=== PATIENT | female | born 1990 | race Caucasian/White ===

== ENCOUNTER 2021-05-03 18:38 | Emergency (ER) | payer OTHER ==
[2021-05-03 20:32] LABS: BASO % 0.8 % (0-2.0); EOS % 1.8 % (0-4.5); HEMATOCRIT 38.4 % (32.4-45.2); HEMOGLOBIN 13.2 GM/dL (10.7-15.3); LYMPH % 31.2 % (8-40); MCH 31.2 pg (25.7-33.7); MCHC 34.4 g/dl (32.0-36.0); MEAN CELL VOLUME 90.7 fl (80-96); MEAN PLT VOLUME 7.9 fl (7.5-11.1); NEUT % 58.2 % (42.8-82.8); PLATELET COUNT 282 10^3/uL (134-434); RBC 4.24 M/mm3 (3.60-5.2); RDW 13.2 % (11.6-15.6)
[2021-05-03 20:36] LABS: EPI CELLS 13 /uL (0-25.1); HYALINE CASTS 1 /uL (0-3.1); URINE APPEARANCE CLEAR; URINE BACTERIA 1130 /uL (0-1359); URINE BILIRUBIN NEGATIVE (NEGATIVE); URINE COLOR YELLOW; URINE GLUCOSE (UA) NEGATIVE (NEGATIVE); URINE KETONE NEGATIVE (NEGATIVE); URINE LEUK ESTERASE NEGATIVE (NEGATIVE); URINE NITRITE NEGATIVE (NEGATIVE); URINE PROTEIN NEGATIVE (NEGATIVE); URINE UROBILINOGEN 0.2 mg/dL (0.2-1.0); URINE WBC 12 /uL (0-25.8)
[2021-05-03 20:51] LABS: URINE RBC 28.7 /uL (0-23.9)
[2021-05-03 21:10] LABS: CALCIUM 9.7 mg/dL (8.5-10.1)
[2021-05-03 21:11] LABS: ALBUMIN 3.8 g/dl (3.4-5.0); BLOOD UREA NITROGEN 12.7 mg/dL (7-18)
[2021-05-03 21:14] LABS: CREATININE 0.8 mg/dL (0.55-1.3)
[2021-05-03 21:16] LABS: BILIRUBIN,TOTAL 0.2 mg/dL (0.2-1); TOT PROT 7.8 g/dl (6.4-8.2)
[2021-05-03] MEDS ORDERED: CEPHALEXIN 250 MG/5 ML ORAL SUSPENSION PO ONE (22:06)
[2021-05-03 23:50] VITALS: BP 119/70; PULSE 64; TEMP 98.5
== END 2021-05-03 23:50 | disposition home or self-care (01) ==
LOC: JER 18:38
DX: O23.41 Unspecified infection of urinary tract in pregnancy, first trimester (principal); O26.851 Spotting complicating pregnancy, first trimester; Z3A.01 Less than 8 weeks gestation of pregnancy
CPT/HCPCS: 36415; 76801-TC; 80053; 81003; 84702; 85025; 86850; 86900; 86901; 87086; 87186; 99284-25

== ENCOUNTER 2021-05-05 12:44 | Emergency (ER) | payer OTHER ==
[2021-05-05 13:05] VITALS: BP 111/70; PULSE 84; TEMP 98.5; BMI 29.8
[2021-05-05] MEDS ORDERED: ACETAMINOPHEN 500 MG TABLET (FP) PO ONE (14:11)
[2021-05-05] MEDS ORDERED: ACETAMINOPHEN 500 MG TABLET (FP) ONE (14:16)
== END 2021-05-05 16:28 | disposition home or self-care (01) ==
LOC: JERFT 12:44 → JER 12:44 → JERFT 16:28
DX: O26.851 Spotting complicating pregnancy, first trimester (principal); Z3A.08 8 weeks gestation of pregnancy
CPT/HCPCS: 36415; 84702; 99284-25

== ENCOUNTER 2021-12-08 09:55 | Inpatient (IN) | payer OTHER ==
[2021-12-08] MEDS: ELECTROLYTE-148 SOLN 1,000 ML IV SCH ×2 (12:00→22:59)
[2021-12-08 14:31] VITALS: BMI 33.6
[2021-12-08] MEDS ORDERED: OXYTOCIN 30 UNITS in 0.9% NS 30 UNIT/500 ML INFUS.BAG IVPB ONE (15:39)
[2021-12-08 16:02] LABS: BASO % 1.3 % (0-2.0); EOS % 0.6 % (0-4.5); HEMATOCRIT 36.7 % (32.4-45.2); HEMOGLOBIN 12.8 GM/dL (10.7-15.3); LYMPH % 47.1 % (8-40); MCH 33.1 pg (25.7-33.7); MCHC 34.9 g/dl (32.0-36.0); MEAN CELL VOLUME 94.8 fl (80-96); MEAN PLT VOLUME 9.1 fl (7.5-11.1); MONO % 6.9 % (3.8-10.2); NEUT % 44.1 % (42.8-82.8); PLATELET COUNT 207 10^3/uL (134-434); RBC 3.87 M/mm3 (3.60-5.2); RDW 13.3 % (11.6-15.6); WHITE BLOOD COUNT 10.2 K/mm3 (4.0-10.0)
[2021-12-08 16:11] LABS: INR 0.91 (0.83-1.09); PROTHROMBIN TIME (PATIENT) 10.4 SEC (9.7-13.0)
[2021-12-08 16:15] LABS: ACTIVATED PTT 31.6 SECONDS (25.2-36.5)
[2021-12-08 16:25] LABS: POC NITRAZINE POS
[2021-12-08 16:52] LABS: CALCIUM 8.7 mg/dL (8.5-10.1)
[2021-12-08 16:53] LABS: BLOOD UREA NITROGEN 6.6 mg/dL (7-18)
[2021-12-08 16:56] LABS: CREATININE 0.5 mg/dL (0.55-1.3)
[2021-12-08] MEDS ORDERED: PROMETHAZINE HCL 25 MG/1 ML VIAL ONE (21:25)
[2021-12-08] MEDS ORDERED: BUTORPHANOL TARTRATE 1 MG/ML VIAL ONE (21:25)
[2021-12-08] MEDS ORDERED: BUTORPHANOL TARTRATE 1 MG/ML VIAL IVPB ONE (22:00)
[2021-12-08] MEDS ORDERED: PROMETHAZINE HCL 25 MG/1 ML VIAL IVPB ONE (22:00)
[2021-12-08] MEDS ORDERED: OXYTOCIN 30 UNITS in 0.9% NS 30 UNIT/500 ML INFUS.BAG IVPB SCH (23:00)
[2021-12-09] MEDS ORDERED: OXYTOCIN 20 UNITS in 0.9% NS 20 UNIT/1,000 ML INFUS.BAG IV ONE (00:58)
[2021-12-09] MEDS ORDERED: LIDOCAINE HCL 1% PRESERVATIVE FREE - 30ML VIAL ONE (00:58)
[2021-12-09] MEDS ORDERED: BENZOCAINE 28 GM HEMORRHOIDAL OINTMENT TP PRN (04:28)
[2021-12-09] MEDS ORDERED: IBUPROFEN 600 MG TABLET (FP) PO PRN (04:28)
[2021-12-09] MEDS ORDERED: BENZOCAINE 20% 57 GM BOTTLE TP PRN (04:28)
[2021-12-09] MEDS ORDERED: BISACODYL 10 MG SUPP.RECT RC PRN (04:28)
[2021-12-09] MEDS ORDERED: WITCH HAZEL 50% (TUCKS) 40 PAD/JAR PAD TP PRN (04:28)
[2021-12-09] MEDS ORDERED: ACETAMINOPHEN 325 MG TABLET (FP) PO PRN (04:28)
[2021-12-09] MEDS ORDERED: OXYTOCIN 20 UNITS in 0.9% NS 20 UNIT/1,000 ML INFUS.BAG IV SCH (04:30)
[2021-12-09] MEDS ORDERED: AMPICILLIN SODIUM 2 GM VIAL ONE (04:52)
[2021-12-09 08:17] LABS: HEMATOCRIT 35.2 % (32.4-45.2); HEMOGLOBIN 12.1 GM/dL (10.7-15.3); MCH 32.4 pg (25.7-33.7); MCHC 34.4 g/dl (32.0-36.0); MEAN CELL VOLUME 94.3 fl (80-96); MEAN PLT VOLUME 8.7 fl (7.5-11.1); PLATELET COUNT 205 10^3/uL (134-434); RBC 3.73 M/mm3 (3.60-5.2); RDW 13.2 % (11.6-15.6); WHITE BLOOD COUNT 21.4 K/mm3 (4.0-10.0)
[2021-12-09 09:16] LABS: ANISOCYTOSIS 0; HELMET CELLS 0; HOWELL-JOLLY BODIES 0; MACROCYTOSIS 0; OVALOCYTE 0; ROULEAU 0; SICKELED CELLS 0; TARGET CELLS 0; TEAR DROP CELLS 0; TOXIC GRANULATION 0
[2021-12-09] MEDS ORDERED: diphenhydrAMINE HCL 25 MG CAPSULE (FP) PO ONE (11:15)
[2021-12-10 08:49] LABS: BASO % 1.3 % (0-2.0); EOS % 0.6 % (0-4.5); HEMATOCRIT 32.4 % (32.4-45.2); LYMPH % 31.4 % (8-40); MCH 32.1 pg (25.7-33.7); MEAN CELL VOLUME 94.3 fl (80-96); MONO % 7.3 % (3.8-10.2); NEUT % 59.4 % (42.8-82.8); PLATELET COUNT 211 10^3/uL (134-434); RBC 3.43 M/mm3 (3.60-5.2); RDW 13.6 % (11.6-15.6); WHITE BLOOD COUNT 12.5 K/mm3 (4.0-10.0)
[2021-12-10] MEDS ORDERED: SENNOSIDES/DOCUSATE COMBO (SENNA PLUS) TABLET (UD) PO PRN (22:00)
[2021-12-10 22:33] VITALS: RESP 18
[2021-12-11 12:11] VITALS: BP 109/74; PULSE 68; TEMP 98.6
== END 2021-12-11 12:15 | disposition home or self-care (01) | DRG 560 ==
LOC: JDEL 09:55 → JLDR 10:45 → J3W 12-09 08:10
PROVIDERS: ADMIT Obstetrics & Gynecology; ATTEND Obstetrics & Gynecology
PROC: 0HQ9XZZ Repair Perineum Skin, External Approach (ICD-10-PCS; principal; 2021-12-09)
PROC: 10E0XZZ Delivery of Products of Conception, External Approach (ICD-10-PCS; 2021-12-09)
DX: O70.0 First degree perineal laceration during delivery (principal); Z3A.38 38 weeks gestation of pregnancy; Z37.0 Single live birth
CPT/HCPCS: 36415; 59409; 80048; 83986-QW; 85025; 85610; 85730; 86780; 86850; 86900; 86901; C9803-CS; U0003; U0005

== ENCOUNTER 2024-12-16 06:45 | Inpatient (IN) | payer OTHER ==
[2024-12-16 08:28] LABS: ABSOLUTE IMMATURE GRANULOCYTES 0.02 x10^3/uL (0.0-0.031); BASOPHILS # 0.03 x10^3/uL (0.01-0.08); EOSINOPHIL % 1.0 % (0.7-5.8); EOSINOPHILS # 0.08 x10^3/uL (0.04-0.36); MCHC 33.5 g/dl (32.2-35.5); MEAN CELL VOLUME 94.7 fl (79.4-94.8); MEAN PLT VOLUME 10.5 fl (9.4-12.3); MONOCYTE # 0.66 x10^3/uL (0.24-0.86); MONOCYTE % 8.1 % (4.7-12.5); RDW 12.8 % (12.1-16.8)
[2024-12-16 08:32] LABS: INR 0.95 (0.83-1.09); PROTHROMBIN TIME (PATIENT) 10.4 SEC (9.7-13.0)
[2024-12-16 08:35] LABS: ACTIVATED PTT 29.3 SECONDS (25.2-36.5)
[2024-12-16] MEDS: LACTATED RINGERS SOLUTION 1,000 ML/1,000 ML INFUS.BAG IV SCH (08:45)
[2024-12-16 08:52] LABS: GLUCOSE,RANDOM 105.0 mg/dL (74-106)
[2024-12-16 08:54] LABS: CO2 18.0 mmol/L (21-32)
[2024-12-16 08:58] LABS: CREATININE 0.65 mg/dL (0.55-1.3)
[2024-12-16] MEDS ORDERED: PROMETHAZINE HCL 25 MG/1 ML VIAL IVPB PRN (09:07)
[2024-12-16] MEDS ORDERED: BUTORPHANOL TARTRATE 2 MG/ML VIAL IVPB PRN (09:07)
[2024-12-16 09:14] VITALS: BMI 32.4
[2024-12-16] MEDS ORDERED: OXYTOCIN 30 UNITS in 0.9% NS 30 UNIT/500 ML INFUS.BAG IVPB ONE (13:48)
[2024-12-16] MEDS: OXYTOCIN 30 UNITS in 0.9% NS 30 UNIT/500 ML INFUS.BAG IVPB SCH (13:50)
[2024-12-16] MEDS ORDERED: BUTORPHANOL TARTRATE 2 MG/ML VIAL ONE (20:26)
[2024-12-16] MEDS ORDERED: PROMETHAZINE HCL 25 MG/1 ML VIAL ONE (20:26)
[2024-12-16] MEDS ORDERED: OXYTOCIN 20 UNITS in 0.9% NS 20 UNIT/1,000 ML INFUS.BAG IV ONE (21:55)
[2024-12-16] MEDS ORDERED: LIDOCAINE HCL 1% PRESERVATIVE FREE - 30ML VIAL ONE (21:55)
[2024-12-16] MEDS: OXYTOCIN 20 UNITS in 0.9% NS 20 UNIT/1,000 ML INFUS.BAG IV SCH (23:10)
[2024-12-16] MEDS ORDERED: IBUPROFEN 600 MG TABLET (FP) PO PRN (23:38)
[2024-12-16] MEDS ORDERED: BENZOCAINE 28 GM HEMORRHOIDAL OINTMENT TP PRN (23:38)
[2024-12-16] MEDS ORDERED: BISACODYL 10 MG SUPP.RECT RC PRN (23:38)
[2024-12-16] MEDS ORDERED: METHYLERGONOVINE MALEATE 0.2 MG/1 ML AMP IM PRN (23:38)
[2024-12-16] MEDS ORDERED: BENZOCAINE 20% 57 GM BOTTLE TP PRN (23:38)
[2024-12-16] MEDS ORDERED: WITCH HAZEL 50% (TUCKS) 40 PAD/JAR PAD TP PRN (23:38)
[2024-12-17 00:46] LABS: CORD BASE EXCESS -9.600 mmol/L (0-2); CORD HCO3 22.0 mmHg (20-29); CORD PCO2 77.5 mmHg (30-78); CORD pH 7.071 (7.14-7.44)
[2024-12-17 00:49] LABS: CORD BASE EXCESS -8.2 mmol/L (0-2); CORD HCO3 20.4 mmHg (20-29); CORD PCO2 52.7 mmHg (30-78); CORD pH 7.205 (7.14-7.44)
[2024-12-17 07:45] LABS: ABSOLUTE IMMATURE GRANULOCYTES 0.06 x10^3/uL (0.0-0.031); BASOPHILS # 0.02 x10^3/uL (0.01-0.08); EOSINOPHIL % 0.1 % (0.7-5.8); EOSINOPHILS # 0.01 x10^3/uL (0.04-0.36); MCHC 32.8 g/dl (32.2-35.5); MEAN CELL VOLUME 95.8 fl (79.4-94.8); MEAN PLT VOLUME 10.5 fl (9.4-12.3); MONOCYTE # 1.23 x10^3/uL (0.24-0.86); MONOCYTE % 8.4 % (4.7-12.5); RDW 13.0 % (12.1-16.8)
[2024-12-17] MEDS: PRENATAL VITAMINS W/ FOLIC ACID TABLET (FP) PO SCH (09:16)
[2024-12-17] MEDS: ACETAMINOPHEN 325 MG TABLET (FP) PO PRN (09:16)
[2024-12-17] MEDS: FERROUS SO4 325 MG TABLET (FP) PO SCH (09:16)
[2024-12-17] MEDS ORDERED: SENNOSIDES/DOCUSATE COMBO (SENNA PLUS) TABLET (UD) PO PRN (22:00)
[2024-12-18 09:22] VITALS: BP 108/67; PULSE 62; RESP 18; TEMP 98.4
== END 2024-12-18 15:20 | disposition home or self-care (01) | DRG 560 ==
LOC: JLDR 06:45 → J3W 12-17 00:23
PROVIDERS: ADMIT Obstetrics & Gynecology; ATTEND Obstetrics & Gynecology
PROC: 10E0XZZ Delivery of Products of Conception, External Approach (ICD-10-PCS; principal; 2024-12-16)
DX: O42.92 Full-term premature rupture of membranes, unspecified as to length of time between rupture and onset of labor (principal); Z3A.40 40 weeks gestation of pregnancy; Z37.0 Single live birth
CPT/HCPCS: 36415; 36600; 59409; 80048; 82803; 85025; 85610; 85730; 86780; 86850; 86900; 86901